=== PATIENT | female | born 1970 | race Caucasian/White ===

== ENCOUNTER 2019-02-15 14:01 | Emergency (ER) | payer OTHER ==
[~2019-02-15] VITALS: Ht 157.5 cm; Wt 83.9 kg
[~2019-02-15 14:01] MED LIST: ASPIR-LOW81 M1 PO; BACLOFEN20 MG PO; CARDIZEM CD180 MG PO; CEL20 PO; CITALOPRAM HYDR40 M1 PO; CLONAZEPAM0.5 MG; CLONAZEPAM0.5 MG PO; COZ25 PO; FLUOXETINE10 M2 PO; GLIPIZIDE2.5 M1; GLU10 PO; GLU850 PO; HYDROXYZINE50 M1 PO; LEVOTHYROXIN0.025 M2; NITROSTAT0.4 MG SL; OMEPRAZOLE20 M2 PO; PRAVASTATIN SOD40 M1 PO; RES15 PO; SINGULAIR4 MG; SYN25 PO; TIZANIDINE HCL4 MG PO; TOPAMAX25 MG PO; TRAMADOL HCL50 MG PO; TRAZODONE150 M1 PO; VIS50 PO; VITAMIN D 3 PO; VOLTAREN75 MG TOP; [UNRECOGNIZED DRUG - OTHER] OT
[2019-02-15 14:20] VITALS: BP 156/79; Ht 157.5 cm; Wt 83.9 kg
== END 2019-02-15 15:22 | disposition home or self-care (01) ==
LOC: ED 14:01
DX: M25.562 Pain in left knee (principal); R11.2 Nausea with vomiting, unspecified; J44.9 Chronic obstructive pulmonary disease, unspecified; E11.9 Type 2 diabetes mellitus without complications; G89.29 Other chronic pain; M54.9 Dorsalgia, unspecified; Z90.710 Acquired absence of both cervix and uterus; Z98.61 Coronary angioplasty status
CPT/HCPCS: J2270